=== PATIENT | female | born 1945 | race Caucasian/White ===

== ENCOUNTER → 2023-08-04 10:52 | Outpatient (REF) | payer MEDICARE, SELFPAY | LOC: HWRCS 10:52 | PROVIDERS: ATTENDING PHYSICIAN Internal Medicine | DX: I35.0 Nonrheumatic aortic (valve) stenosis (principal) | CPT/HCPCS: 93306 ==

== ENCOUNTER → 2024-01-05 08:47 | Outpatient (REF) | payer MEDICARE, SELFPAY | LOC: HWRAD 08:47 | PROVIDERS: ATTENDING PHYSICIAN Internal Medicine | DX: Z00.00 Encounter for general adult medical examination without abnormal findings (principal); Z78.0 Asymptomatic menopausal state; Z13.820 Encounter for screening for osteoporosis | CPT/HCPCS: 77080 ==

== ENCOUNTER 2024-03-19 14:22 | Emergency (ER) | payer MEDICARE, SELFPAY ==
[2024-03-19 14:29] VITALS: BP 162/87
[2024-03-19 15:08] VITALS: BMI 25.4
--- NOTE | 2024-03-19 15:38 | ED.SKININJ ---
HPI-Injury
General
Chief Complaint: Fall
Source: patient
Exam Limitations: none
Time Seen by Provider: 03/19/24 15:21
History of Present Illness-Injury
Initial Injury comments:
78-year-old female presents after trip and fall at 9 AM this morning. This was 6 hours prior to my exam. She was walking for tripped and fell forward hitting her upper lip on the concrete. She is not anticoagulated. She denies loss of conscious.
She denies headache or vision change. She denies neck pain. She notes a swollen lip with a laceration. Her teeth feel normal. She lives by herself but is accompanied by her neighbor. Was told to come here for evaluation.
Phy Exam
Physical Exam
Physical Exam:
General: Well-appearing female no acute respiratory distress
HEENT: Normocephalic superficial laceration mucosal surface of the lip. One is more anterior that measures about 5 mm and is superficial. The other 1 is posterior on the upper lip that measures 2 mm. This is a small puncture. Dentition appears
well pupils equal round reactive to light edges of the wounds are well-approximated
Musculoskeletal exam: Cervical spine is nontender neurologic exam: Alert and oriented x 3 conversing appropriately no drift normal gait
Extremities: No cyanosis
Course
Vital Signs
Initial and Last Documented VS:
Initial Vital Signs
Temp Pulse Resp BP Pulse Ox
98.1 F 83 18 162/87 96
03/19/24 14:29 03/19/24 14:29 03/19/24 14:29 03/19/24 14:29 03/19/24 14:29
Last Documented Vital Signs
Temp Pulse Resp BP Pulse Ox
98.1 F 83 18 162/87 96
03/19/24 14:29 03/19/24 14:29 03/19/24 14:29 03/19/24 14:29 03/19/24 14:29
MDM/Problems Addressed
Differential Diagnosis Includes:
Patient presents after trip and fall. Neurologically intact. There is superficial laceration to upper lip. Laceration do not require any wound closure wound care instructions were given. Offered and recommended CT of the head secondary to the
fall however patient declined as she feels normal and the injury happened quite sometime ago. Think this is reasonable but strict return precautions were given.
*Critical Care Note
Total Time (30-74mins, 75-104mins- exclusive of procedures): Not Applicable
ED Attending Note
-
Portions of this chart may have been created with voice recognition software.� Occasional wrong word or��sound alike� substitutions may have occurred due to the inherent limitations of voice recognition software.
Discharge Plan
Departure
Patient Disposition: Home (Routine Discharge)
Date of Disposition: 03/19/24
Time of Disposition: 15:42
Patient with high blood pressure during this ER visit?: No
Discharge Problem:
Laceration
Instructions: Wound Care (DC)
Prescriptions:
No Action
No Current Medications
0
Activity Restrictions/Additional Instructions:
Ice to the lip for swelling. You may rinse with warm salt water. Please return here for increasing headache vision change nausea or other concerning finding
Interventions
Interventions:
*Risk Screen - Suicide Last Done: 03/19/24 14:34
*General Assessment Last Done: 03/19/24 14:34
*Neglect/Abuse Screening Last Done: 03/19/24 14:34
ED- Fall Risk Assessment Last Done: 03/19/24 15:08
*ED COVID-19 Vaccine History Last Done: 03/19/24 15:08
ED-Musculoskeletal Assessment Last Done: 03/19/24 15:08
ED- Neurological Assessment Last Done: 03/19/24 15:08
ED-Skin Assessment Last Done: 03/19/24 15:08
Discharge Date and Time
Print Language: BULGARIAN
== END 2024-03-19 15:55 | disposition home or self-care (01) ==
LOC: EMR 14:22
PROVIDERS: EMERGENCY PHYSICIAN Emergency Medicine; FAMILY PHYSICIAN Internal Medicine
DX: S01.511A Laceration without foreign body of lip, initial encounter (principal); W01.0XXA Fall on same level from slipping, tripping and stumbling without subsequent striking against object, initial encounter; Z88.8 Allergy status to other drugs, medicaments and biological substances
CPT/HCPCS: 99282

== ENCOUNTER 2024-06-21 20:26 | Inpatient (IN) | payer MEDICARE, SELFPAY ==
[2024-06-21 15:45] VITALS: BP 154/82
[2024-06-21 16:11] VITALS: BP 150/90
--- NOTE | 2024-06-21 16:14 | ED.GENMED ---
ED Provider Triage
<Tan Ferrera Jr., PA-C - Last Filed: 06/21/24 16:15>
-
Patient seen by provider in Triage?: Seen in Triage
Attestation: A medical screening examination has been initiated by a qualified medical provider. Based on the assessment performed at this time, it has been determined that an emergent medical condition may exist and the patient has been informed
that further medical evaluation and possible additional diagnostic testing may be needed.
HPI: URI over the past few weeks. Also has been on amoxicillin for the past few days no improvement of symptoms. Ongoing cough some discomfort to the right lower chest.Plan for x-ray and labs for further assessment.
GENERAL: Alert , in no apparent distress
EYE: No visual abnormalities.
NECK: Trachea midline
ENT: No visible abnormalities.
LUNGS: No acute respiratory distress
NEUROLOGICAL: Alert and oriented
SKIN: Skin intact. No visible changes.
MUSCULOSKELETAL: Moving extremities normally
PSYCH: Normal and appropriate interaction.
This is a medical evaluation conducted in person to initiate diagnostic evaluation and provide initial therapeutics. Please see further documentation by the treating clinician.
History of Present Illness
<Tan Ferrera Jr., PA-C - Last Filed: 06/21/24 16:15>
General
Chief Complaint: Cold/Flu/URI Symptoms
Time Seen by Provider: 06/21/24 17:10
<TESFAYE Gamboa - Last Filed: 06/21/24 19:35>
General
Source: patient and family
Exam Limitations: none
Nursing documentation reviewed up to this point in time: agreed with
History of Present Illness
History of Present Illness:
Patient is a 78-year-old female who presents to the ER with daughter at bedside. Patient reports has been sick since June 02 with cough. She reports for the past several weeks her symptoms have worsened. She continues to have chest congestion
nasal congestion however now feels very weak. She saw her family doctor June who put on amoxicillin. She has been taking that for the past 4 days without relief. Patient can barely get around at home as per daughter. She did have chills but
has not had a recent fever.
Review of Systems
<TESFAYE Gamboa - Last Filed: 06/21/24 19:35>
Review of Systems
Allergies reviewed?: Yes
Other source history: family
All Other Systems: ROS reviewed and negative except as documented in HPI and ROS
Constitutional: Reports fatigue
EENT: Reports no symptoms
Respiratory: Reports cough; Denies trouble breathing
Cardiac: Reports no symptoms
ABD/GI: Reports no symptoms
Musculoskeletal: Reports no symptoms
Skin: Reports no symptoms
Neurological: Reports no symptoms
Psychiatric: Reports no symptoms
Phy Exam
<TESFAYE Gamboa - Last Filed: 06/21/24 19:35>
General Physical Exam
General Presentation: no apparent distress
General age: appears stated age
General Skin: warm and dry
General Habitus: elderly
General Mental: alert
General Hydration: appears well hydrated
Cardiovascular Exam
Cardiovascular Exam: regular rate/rhythm, no murmur and normal peripheral pulses
Pulmonary Exam
Pulmonary Exam: other (Slight crackles)
Neurological Exam
Neurological Exam: alert and oriented x3
Musculoskeletal Exam
Musculoskeletal Exam: full ROM
Skin Exam
Skin Exam: normal color and warm/dry
Psychiatric Exam
Psychiatric Exam: normal mood/affect
Course
<Tan Ferrera Jr., PA-C - Last Filed: 06/21/24 16:15>
Orders/Labs/Results
Orders:
Orders
06/21/24 Breakfast
Cholesterol Lowering
At Your Request: Full Participation
Cholesterol Lowering: Sodium, 2 Gram
06/21/24 16:10
EKG [Electrocardiogram (*1)] Urgent
Reason for Study: Fatigue / Weakness
EKG- Treatment ONCE
Chest [CR Chest - 2 Views ] Urgent
Comment:
Reason For Exam: cough fever
06/21/24 16:34
CBC/With Diff [Complete Blood Count/With Diff] Urgent
CMP [Comprehensive Metabolic Panel] Urgent
TSH Reflex To Free T4 Urgent
06/21/24 16:43
Urinalysis Reflex To Culture Urgent
Date Specimen was Collected: 06/21/24
Time Specimen was Collected: 16:42
Urine Microscopic Reflex Cult Urgent
Legionella Urinary Antigen Routine
DESTINY Source: Urine
Specimen Description:
Strep pneumoniae Antigen Routine
DESTINY Source: Urine
Specimen Description:
06/21/24 18:06
0.9% Sodium Chloride 1000 ml [Nss] 1,000 ml IV BOLUS
Azithromycin 500 mg/250 ml [Zithromax Infusion] 500 mg in 250 ml IV NOW
CefTRIAXone [Rocephin] 1,000 mg IV NOW STA
06/21/24 19:50
COVID-19 Antigen Urgent
Source: Nasal Swab
Influenza A+B Rapid Molecular Urgent
DESTINY Source: Nasal Swab
Specimen Description:
06/21/24 19:55
Admit/Transfer Patient As Directed
Co-Sign Provider:
Level of Care: Inpatient admission
Assign to:: Medical/Surgical
Physician / Group: [email or web address]
Diagnosis: pneumonia
Reason for Hospitalization: pneumonia
Expected length of stay greater than two midnights?: Yes
ELOS- Estimated Length of Stay in days: 3
I certify the patient meets the requirements for IP care: Yes
Code Status As Directed
Resuscitation Status: Full Code
PRN Pain Medication Management As Directed
May give lesser potent ordered pain med per pt: Yes
preference::
Protocol:: Medication orders for pain may be administered in a
manner that supports deferring to patient preference
when the pt is:
- Requesting an ordered lesser potent pain medication.
Least to most potent pain medications are defined
as: acetaminophen < NSAID < tramadol < opioids
(morphine, oxycodone, hydromorphone).
- Requesting a lesser dose of the same medication IF
ORDERED.
- Requesting a less intrusive route of administration
if both routes are prescribed by the provider (PO <
IV).
06/21/24 19:57
Sterile Water [Sterile Water For Injection] 10 ml .ROUTE .[facility]
06/21/24 21:06
0.9% Sodium Chloride 1000 ml [Nss] 1,000 ml IV 80 mls/hr
Acetaminophen [Tylenol] 650 mg PO Q4HPRN PRN
Guaifenesin [Mucinex] 600 mg PO Q12
Ipratropium/Albuterol Sulfate [Duoneb] 3 ml INH R Q4HPRN PRN
06/21/24 21:06
Respiratory Culture/Gram Stain Urgent
DESTINY Source: Sputum
Specimen Description:
Activity As Directed
Activity Level: Out of Bed-Early Mobility
Intake/ Output As Directed
Frequency: Per unit guidelines
Vital Signs As Directed
Frequency: Per unit guidelines
Weight As Directed
Frequency: Once
Comment: on admission
Pt Eval And Treat Routine
Activity Level: As Tolerated
DX Deep Vein Thrombosis Video Routine
06/22/24 05:54
Basic Metabolic Panel IN AM
Complete Blood Count/No Diff IN AM
06/22/24 08:00
Lisinopril [Zestril] 40 mg PO DAILY
06/22/24 18:00
Enoxaparin Sodium [Lovenox] 40 mg SC QPM
06/22/24 20:00
Azithromycin 500 mg/250 ml [Zithromax Infusion] 500 mg in 250 ml IV Q24H
CefTRIAXone [Rocephin] 1,000 mg IV Q24H
06/23/24 06:00
Basic Metabolic Panel IN AM
Complete Blood Count/No Diff IN AM
06/24/24 06:00
Basic Metabolic Panel IN AM
Complete Blood Count/No Diff IN AM
06/25/24 06:00
Basic Metabolic Panel IN AM
Complete Blood Count/No Diff IN AM
Abnormal Lab Results
06/21/24 06/21/24
16:34 16:43
WBC 18.2 H 10^3/uL
(4.8-10.8)
RBC 3.63 L 10^6/uL
(4.20-5.40)
Hgb 11.4 L g/dL
(12.0-16.0)
Hct 33.2 L %
(37.0-47.0)
MCH 31.4 H pg
(27.0-31.0)
MPV 11.2 H fL
(7.4-10.4)
Abs Immat Gran (auto) 0.2 H 10^3/uL
(0-0.05)
Absolute Neuts (auto) 14.5 H 10^3/uL
(1.4-6.5)
Absolute Monos (auto) 1.7 H 10^3/uL
(0.1-0.6)
Immature Gran % 1.2 H %
(0-0.5)
Neutrophils % 79.4 H %
(42.2-75.2)
Lymphocytes % 9.6 L %
(20.5-51.1)
Sodium 130 L mmol/L
(135-145)
Chloride 89 L mmol/L
(98-107)
Carbon Dioxide 31 H mmol/L
(22-30)
Glucose 119 H mg/dl
(70-99)
ALT 39 H U/L
(0-35)
Alkaline Phosphatase 144 H U/L
(38-126)
Leukocyte Esterase Rfl Trace A
(Negative)
Urine Bacteria (Reflex) Few A
(Negative)
06/21/24 16:34
06/21/24 16:34
Vital Signs
Initial and Last Documented VS:
Initial Vital Signs
Temp Pulse Resp BP Pulse Ox
97.8 F 102 16 150/90 98
06/21/24 16:11 06/21/24 16:11 06/21/24 16:11 06/21/24 16:11 06/21/24 16:11
Last Documented Vital Signs
Temp Pulse Resp BP Pulse Ox
97.6 F 85 24 147/78 96
06/22/24 09:23 06/22/24 09:16 06/21/24 23:20 06/22/24 09:16 06/22/24 09:16
<TESFAYE Gamboa - Last Filed: 06/21/24 19:35>
Orders/Labs/Results
Orders:
Orders
06/21/24 Breakfast
Cholesterol Lowering
At Your Request: Full Participation
Cholesterol Lowering: Sodium, 2 Gram
06/21/24 16:10
EKG [Electrocardiogram (*1)] Urgent
Reason for Study: Fatigue / Weakness
EKG- Treatment ONCE
Chest [CR Chest - 2 Views ] Urgent
Comment:
Reason For Exam: cough fever
06/21/24 16:34
CBC/With Diff [Complete Blood Count/With Diff] Urgent
CMP [Comprehensive Metabolic Panel] Urgent
TSH Reflex To Free T4 Urgent
06/21/24 16:43
Urinalysis Reflex To Culture Urgent
Date Specimen was Collected: 06/21/24
Time Specimen was Collected: 16:42
Urine Microscopic Reflex Cult Urgent
Legionella Urinary Antigen Routine
DESTINY Source: Urine
Specimen Description:
Strep pneumoniae Antigen Routine
DESTINY Source: Urine
Specimen Description:
06/21/24 18:06
0.9% Sodium Chloride 1000 ml [Nss] 1,000 ml IV BOLUS
Azithromycin 500 mg/250 ml [Zithromax Infusion] 500 mg in 250 ml IV NOW
CefTRIAXone [Rocephin] 1,000 mg IV NOW STA
06/21/24 19:50
COVID-19 Antigen Urgent
Source: Nasal Swab
Influenza A+B Rapid Molecular Urgent
DESTINY Source: Nasal Swab
Specimen Description:
06/21/24 19:55
Admit/Transfer Patient As Directed
Co-Sign Provider:
Level of Care: Inpatient admission
Assign to:: Medical/Surgical
Physician / Group: therese
Diagnosis: pneumonia
Reason for Hospitalization: pneumonia
Expected length of stay greater than two midnights?: Yes
ELOS- Estimated Length of Stay in days: 3
I certify the patient meets the requirements for IP care: Yes
Code Status As Directed
Resuscitation Status: Full Code
PRN Pain Medication Management As Directed
May give lesser potent ordered pain med per pt: Yes
preference::
Protocol:: Medication orders for pain may be administered in a
manner that supports deferring to patient preference
when the pt is:
- Requesting an ordered lesser potent pain medication.
Least to most potent pain medications are defined
as: acetaminophen < NSAID < tramadol < opioids
(morphine, oxycodone, hydromorphone).
- Requesting a lesser dose of the same medication IF
ORDERED.
- Requesting a less intrusive route of administration
if both routes are prescribed by the provider (PO <
IV).
06/21/24 19:57
Sterile Water [Sterile Water For Injection] 10 ml .ROUTE .[facility]
06/21/24 21:06
0.9% Sodium Chloride 1000 ml [Nss] 1,000 ml IV 80 mls/hr
Acetaminophen [Tylenol] 650 mg PO Q4HPRN PRN
Guaifenesin [Mucinex] 600 mg PO Q12
Ipratropium/Albuterol Sulfate [Duoneb] 3 ml INH R Q4HPRN PRN
06/21/24 21:06
Respiratory Culture/Gram Stain Urgent
DESTINY Source: Sputum
Specimen Description:
Activity As Directed
Activity Level: Out of Bed-Early Mobility
Intake/ Output As Directed
Frequency: Per unit guidelines
Vital Signs As Directed
Frequency: Per unit guidelines
Weight As Directed
Frequency: Once
Comment: on admission
Pt Eval And Treat Routine
Activity Level: As Tolerated
DX Deep Vein Thrombosis Video Routine
06/22/24 05:54
Basic Metabolic Panel IN AM
Complete Blood Count/No Diff IN AM
06/22/24 08:00
Lisinopril [Zestril] 40 mg PO DAILY
06/22/24 18:00
Enoxaparin Sodium [Lovenox] 40 mg SC QPM
06/22/24 20:00
Azithromycin 500 mg/250 ml [Zithromax Infusion] 500 mg in 250 ml IV Q24H
CefTRIAXone [Rocephin] 1,000 mg IV Q24H
06/23/24 06:00
Basic Metabolic Panel IN AM
Complete Blood Count/No Diff IN AM
06/24/24 06:00
Basic Metabolic Panel IN AM
Complete Blood Count/No Diff IN AM
06/25/24 06:00
Basic Metabolic Panel IN AM
Complete Blood Count/No Diff IN AM
Abnormal Lab Results
06/21/24 06/21/24
16:34 16:43
WBC 18.2 H 10^3/uL
(4.8-10.8)
RBC 3.63 L 10^6/uL
(4.20-5.40)
Hgb 11.4 L g/dL
(12.0-16.0)
Hct 33.2 L %
(37.0-47.0)
MCH 31.4 H pg
(27.0-31.0)
MPV 11.2 H fL
(7.4-10.4)
Abs Immat Gran (auto) 0.2 H 10^3/uL
(0-0.05)
Absolute Neuts (auto) 14.5 H 10^3/uL
(1.4-6.5)
Absolute Monos (auto) 1.7 H 10^3/uL
(0.1-0.6)
Immature Gran % 1.2 H %
(0-0.5)
Neutrophils % 79.4 H %
(42.2-75.2)
Lymphocytes % 9.6 L %
(20.5-51.1)
Sodium 130 L mmol/L
(135-145)
Chloride 89 L mmol/L
(98-107)
Carbon Dioxide 31 H mmol/L
(22-30)
Glucose 119 H mg/dl
(70-99)
ALT 39 H U/L
(0-35)
Alkaline Phosphatase 144 H U/L
(38-126)
Leukocyte Esterase Rfl Trace A
(Negative)
Urine Bacteria (Reflex) Few A
(Negative)
06/21/24 16:34
06/21/24 16:34
Vital Signs
Initial and Last Documented VS:
Initial Vital Signs
Temp Pulse Resp BP Pulse Ox
97.8 F 102 16 150/90 98
06/21/24 16:11 06/21/24 16:11 06/21/24 16:11 06/21/24 16:11 06/21/24 16:11
Last Documented Vital Signs
Temp Pulse Resp BP Pulse Ox
97.6 F 85 24 147/78 96
06/22/24 09:23 06/22/24 09:16 06/21/24 23:20 06/22/24 09:16 06/22/24 09:16
[facility] consulted with Physician
[facility] consulted with physician?: Yes
Name of Physician Consulted: Whit
<TESFAYE Gamboa - Last Filed: 06/21/24 19:35>
MDM/Problems Addressed
Differential Diagnosis Includes:
Not limited to failed outpatient pneumonia, electrolyte abnormality, dehydration
MDM/Problems Addressed:
Patient is a 78-year-old female who has been sick since mid May with cough congestion presenting to the ER with increasing weakness worsening cough. Patient has been on antibiotics by family doctor for the past 4 days without relief. Daughter
ports she is now very weak. She presents with an elevated white count of 18,000 chest x-ray does show airspace consolidation in the posterior basilar right lower lobe likely pneumonia will admit for failed outpatient antibiotics. Patient was also
found to be mildly hyponatremic given the fact the patient is also weak will require admission. Patient was given fluids, likely from dehydration
<TESFAYE Gamboa - Last Filed: 06/21/24 19:35>
*Radiology
Radiology exam reviewed: radiology read reviewed
*Pulse Oximetry
Patient hypoxic: yes
*EKG
Interpreted by ED Provider?: Yes
Interpretation: normal
Comparison EKG: no comparison EKG present
Heart Rate: 91
Rate: normal
Rhythm: sinus
Ischemia: no ischemia
*Critical Care Note
Total Time (30-74mins, 75-104mins- exclusive of procedures): Not Applicable
ED Attending Note
<Edsummer Ferrera Jr., PA-C - Last Filed: 06/21/24 16:15>
-
Portions of this chart may have been created with voice recognition software.� Occasional wrong word or��sound alike� substitutions may have occurred due to the inherent limitations of voice recognition software.
Discharge Plan
Departure
Patient Disposition: Admit
Date of Disposition: 06/21/24
Time of Disposition: 19:31
Admit to: Med/Surg
Admit to doctor: hospitalist
Presentation/result/management discussed w/ accepting MD/DO: Hospitalist
Patient with high blood pressure during this ER visit?: Yes
Condition: Fair
Discharge Problem:
Pneumonia, Weakness, Acute hyponatremia
Interventions
Interventions:
*Risk Screen - Suicide Last Done: 06/21/24 16:11
*General Assessment Last Done: 06/21/24 18:32
*Neglect/Abuse Screening Last Done: 06/21/24 16:11
*ED COVID-19 Vaccine History Last Done: 06/21/24 21:44
ED- Pulmonary Assessment Last Done: 06/21/24 18:30
[2024-06-21 17:20] LABS: % Basophils 0.3 % (0-2); % Eosinophils 0.4 % (0-6); % Immature Granulocytes 1.2 % (0-0.5); % Lymphocytes 9.6 % (20.5-51.1); % Monocytes 9.1 % (1.7-9.3); % Neutrophils 79.4 % (42.2-75.2); Absolute Basophils 0.1 10^3/uL (0-0.2); Absolute Eosinophils 0.1 10^3/uL (0-0.7); Absolute Immature Granulocytes 0.2 10^3/uL (0-0.05); Absolute Lymphocytes 1.7 10^3/uL (1.2-3.4); Absolute Monocytes 1.7 10^3/uL (0.1-0.6); Absolute Neutrophils 14.5 10^3/uL (1.4-6.5); Hematocrit 33.2 % (37.0-47.0); Hemoglobin 11.4 g/dL (12.0-16.0); Mean Corp Hgb Conc. 34.3 g/dL (33.0-37.0); Mean Corpuscular Hgb 31.4 pg (27.0-31.0); Mean Corpuscular Volume 91.5 fL (81.0-99.0); Mean Platelet Volume 11.2 fL (7.4-10.4); Nucleated Red Blood Cells % 0 %; Platelet Count 392 10^3/uL (130-400); Red Blood Cell Count 3.63 10^6/uL (4.20-5.40); Red Cell Dist. Width 12.7 % (11.5-14.5); White Blood Cell Count 18.2 10^3/uL (4.8-10.8)
[2024-06-21 17:31] LABS: ALT (SGPT) 39 U/L (0-35); AST (SGOT) 35 U/L (14-36); Albumin 3.9 g/dl (3.5-5.0); Alkaline Phosphatase 144 U/L (38-126); Blood Urea Nitrogen 17 mg/dl (7-17); Calcium 9.5 mg/dl (8.4-10.2); Carbon Dioxide 31 mmol/L (22-30); Chloride 89 mmol/L (98-107); Glucose 119 mg/dl (70-99); Potassium 4.4 mmol/L (3.5-5.1); Sodium 130 mmol/L (135-145); Total Bilirubin 0.3 mg/dl (0.2-1.3); Total Protein 6.9 g/dl (6.3-8.2); eGFR > 60.00
[2024-06-21 17:44] LABS: Urine Albumin Trace (Neg - Trace); Urine Bilirubin Negative (Negative); Urine Character Clear (Clear); Urine Color Yellow; Urine Glucose Negative (Negative); Urine Ketone Negative (Negative); Urine Leukocyte Trace (Negative); Urine Nitrite Negative (Negative); Urine Occult Blood Negative (Negative); Urine Urobilinogen 1+ (Neg - 1+)
[2024-06-21 17:59] LABS: TSH Reflex To Free T4 0.96 uIU/ml (0.47-4.68)
[2024-06-21 18:31] VITALS: BP 142/87
[2024-06-21 19:28] LABS: Urine Bacteria Few (Negative); Urine Red Blood Cell 0-2 /HPF (0-2); Urine Squamous Cell >30 /LPF (Few)
--- NOTE | 2024-06-21 19:37 | HPS.HSE ---
Family Physician
-
Family Physician: Camilla Mclain DO
Chief Complaint
-
cough
congestion
History of Present Illness
78-year-old female with PMH for HTN presented to us with cough with clear to gonzalez colored sputum, chest congestion, feeling just weak since the . patient stated very poor appetite. denied ARGUETA, dizzy or syncope. she had a temp of 100.0 at home.
denied abdominal pain,n,v,d. denied dysuria or hematuria. she is taking amoxicillin for past 4 days, with no relief in her symptoms.
chest x ray with pneumonia. received zithro and ceftriaxone. admitting for further management.
Medical History
Past Medical History
Past Medical History: Reports Other
Additional Past Medical History:
Diverticulosis
Hypertension
Aortic stenosis
Past Surgical History: Reports Other
Additional Past Surgical History:
Tubularization
Cataract surgery
Social History
Tobacco: Non-smoker
Alcohol: Occasional
Family History
Family History: Not pertinent
Allergies / Home Medications
Allergies reflects when Allergies were last updated in [facility].
Home Medications with original date entered in [facility]
Allergy/Medication List:
Allergies
Allergy/AdvReac Type Severity Reaction Status Date / Time
epinephrine Allergy Unknown Verified 06/21/24 16:14
Home Medications
Lactobac no.2-Bifidobac no.1-S. thermo 112.5 billion cell capsule (Visbiome) 1 cap PO DAILY 06/21/24
amoxicillin 250 mg/5 mL oral suspension 500 mg PO TID 06/21/24
ascorbic acid (vitamin C) 250 mg chewable tablet (Vitamin C) 250 mg PO QPM 06/21/24
fluticasone propionate 50 mcg/actuation nasal spray,suspension 1 spray intranasal DAILYPRN PRN congestion 06/21/24
hydrochlorothiazide 25 mg tablet 25 mg PO DAILY 06/21/24
lisinopril 40 mg tablet 40 mg PO DAILY 06/21/24
magnesium oxide 200 mg PO QPM 06/21/24
therapeutic multivitamin 1 tab PO QPM 06/21/24
vitamins A,C,U-epuf-uigkvg 4,296 mcg-226 mg-90 mg capsule (PreserVision AREDS) 1 cap PO BID 06/21/24
Review of Systems
-
Constitutional: Reports Fever, Fatigue and Chills
EENT: Reports No Symptoms
Respiratory: Reports Cough
Cardiac: Reports No Symptoms
Abdomen/GI: Reports No Symptoms
: Reports No Symptoms
Musculoskeletal: Reports No Symptoms
Skin: Reports No Symptoms
Neurological: Reports No Symptoms
Endocrine: Reports No Symptoms
Hematologic/Lymphatic: Reports No Symptoms
Psych: Reports No Symptoms
Physical Exam
Vital Signs
Vital Signs
Temp Pulse Resp BP Pulse Ox
97.8 F 92 18 142/87 96
06/21/24 16:11 06/21/24 18:31 06/21/24 18:31 06/21/24 18:31 06/21/24 18:31
Physical Exam
General: Well Developed, Well Nourished and No Apparent Distress
HEENT: NormoCephalic, Moist mucous membranes and Atraumatic
Respiratory: Clear
Cardiac: S1/S2 and Regular Rhythm; No Murmur or Rub
GI: Soft, Non Tender, Non Distended and Normal Bowel Sounds; No Organomegaly
Rectal: Deferred by Provider
Musculoskeletal: No Clubbing, No Cyanosis and No Edema
Skin: No Rash
Neuro: AO x 3 and Nonfocal/grossly intact
Psych: Calm
Laboratory Results
-
06/21/24 16:34
06/21/24 16:34
Laboratory Results
Total Bilirubin 0.3 mg/dl (0.2-1.3) 06/21/24 16:34
AST 35 U/L (14-36) 06/21/24 16:34
ALT 39 U/L (0-35) H 06/21/24 16:34
Alkaline Phosphatase 144 U/L (38-126) H 06/21/24 16:34
Data Reviewed
-
Lab Data: Labs Reviewed by me
Impression/Plan
-
# Chest congestion likely from pneumonia
-WBCs 18.2
-COVID,flu pending
-Chest x-ray with impression of small subpleural airspace consolidation in the posterior basilar right lower lobe. Diagnostic possibilities are (1) mild pneumonia or (2) subsegmental atelectasis/scarring.
2. Mild scarring in the right middle lobe.
3. Moderate bilateral lung hyperinflation suggesting chronic obstructive pulmonary disease (COPD).
-Zithromax ceftriaxone continued
-Tylenol as needed for fever
# Hyponatremia likely hypovolemic
-Received normal saline in ER
-Monitor BMP in a.m.
#essential htn
-lisinopril continued
-held HCTZ
#DVT prophylaxis
-Lovenox
#CODE status
-full code
[2024-06-21] MEDS: NSS 1000 IV ×2 (20:08→21:57)
[2024-06-21] MEDS: ZITHROMAX INFUSION 250 IV (20:09)
[2024-06-21] MEDS: ROCEPHIN 1000 MG IV (20:09)
[2024-06-21 20:15] LABS: COVID-19 Antigen Negative (Negative)
--- NOTE | 2024-06-21 20:26 | W.PN.UPDATE ---
Documented by User: Arabella Trevino MD 06/21/24 22:53
Update Note
Progress Note Update
Patient seen in conjunction with [employer]. I concur with history and physical and agree with the assessment and plan unless stated otherwise.
Briefly this is a 78-year-old female with past medical history significant for sinus congestion, hypertension presenting to the emergency department with ongoing cough, shortness of breath, fatigue, decreased p.o. intake and failure to thrive.
Patient reported that symptoms began after a gathering on May 31. She started having nasal congestion and then a cough and low-grade temp. She thought she had a cold. She tested herself for COVID which was negative. She was trying to
tolerate the symptoms up until in June. When she felt that her symptoms are not improving. She reports that her cough is not generally productive. She did have a fever on June 17. She saw a physician with that she had postnasal drip
syndrome and started on amoxicillin. She started taking the amoxicillin Friday. However she has continued to have cough fatigue listlessness and decreased p.o. intake. She denied nausea vomiting. She denies any wheezing. She denies history of
asthma. She reports prior smoking for denies any known COPD.
In the emergency department she was afebrile, she was admitted 6% on room air. Blood pressure was 145/70 pulse of 92. She had a chest x-ray showing a small consolidation in the right lower lobe. ECG showed normal sinus rhythm. She had
leukocytosis and wheezing thousand. Sodium was 130, the rest of the electrolytes were stable. BUN/creatinine were normal. AST ALT were slightly elevated. COVId negative. Flu negative.
On my exam air movement was low and she has crackles at the right lower base. No wheezing.
Right lower lobe pneumonia
- admit to med/surg
- IV ceftriaxone/azithromycin
- duonebs RTC for now, no steroids
- antitussives, prn
Hyponatremia - Patient with decreased po intake and really only drinking water for several days. suspect hypovolemic hyponatremia exacerbated by hctz.
- hold hctz
- continue IV normal saline overnight
DVT PPX - lovenox sq
Code status - full code

Documented by User: TESFAYE Gamboa 06/21/24 22:53
Update Note
Progress Note Update
Patient seen in conjunction with TESFAYE. I concur with history and physical and agree with the assessment and plan unless stated otherwise.
Briefly this is a 78-year-old female with past medical history significant for sinus congestion, hypertension presenting to the emergency department with ongoing cough, shortness of breath, fatigue, decreased p.o. intake and failure to thrive.
Patient reported that symptoms began after a gathering on May 31. She started having nasal congestion and then a cough and low-grade temp. She thought she had a cold. She tested herself for COVID which was negative. She was trying to
tolerate the symptoms up until in June. When she felt that her symptoms are not improving. She reports that her cough is not generally productive. She did have a fever on June 17. She saw a physician with that she had postnasal drip
syndrome and started on amoxicillin. She started taking the amoxicillin Friday. However she has continued to have cough fatigue listlessness and decreased p.o. intake. She denied nausea vomiting. She denies any wheezing. She denies history of
asthma. She reports prior smoking for denies any known COPD.
In the emergency department she was afebrile, she was admitted 6% on room air. Blood pressure was 145/70 pulse of 92. She had a chest x-ray showing a small consolidation in the right lower lobe. ECG showed normal sinus rhythm. She had
leukocytosis and wheezing thousand. Sodium was 130, the rest of the electrolytes were stable. BUN/creatinine were normal. AST ALT were slightly elevated. COVId negative. Flu negative.
On my exam air movement was low and she has crackles at the right lower base. No wheezing.
Right lower lobe pneumonia
- admit to med/surg
- IV ceftriaxone/azithromycin
- duonebs RTC for now, no steroids
- antitussives, prn
Hyponatremia - Patient with decreased po intake and really only drinking water for several days. suspect hypovolemic hyponatremia exacerbated by hctz.
- hold hctz
- continue IV normal saline overnight
DVT PPX - lovenox sq
Code status - full code
[2024-06-21 21:10] VITALS: BP 123/77
[2024-06-21 23:20] VITALS: BP 133/67
[2024-06-22 00:13] VITALS: BP 86/73
[2024-06-22 00:15] VITALS: BP 133/67
[2024-06-22 06:14] LABS: Hematocrit 31.5 % (37.0-47.0); Hemoglobin 10.2 g/dL (12.0-16.0); Mean Corp Hgb Conc. 32.4 g/dL (33.0-37.0); Mean Corpuscular Hgb 30.9 pg (27.0-31.0); Mean Corpuscular Volume 95.5 fL (81.0-99.0); Mean Platelet Volume 10.8 fL (7.4-10.4); Platelet Count 351 10^3/uL (130-400); White Blood Cell Count 12.7 10^3/uL (4.8-10.8)
[2024-06-22 06:33] LABS: Blood Urea Nitrogen 11 mg/dl (7-17); Calcium 8.6 mg/dl (8.4-10.2); Carbon Dioxide 28 mmol/L (22-30); Chloride 100 mmol/L (98-107); Glucose 105 mg/dl (70-99); Potassium 4.3 mmol/L (3.5-5.1); Sodium 135 mmol/L (135-145); eGFR > 60.00
--- NOTE | 2024-06-22 08:18 | W.PN.HOSP.TC ---
Today's Communication/Plan
-
Continue current care
Assessment / Plan
Assessment / Plan
Gen-AAOx3, NAD
HEENT-NC, AT, anicteric, clear oral mm
Neck-supple
CV-reg, no M, +S1/S2
Lungs-clear B/L
Abd-soft, NT, ND
Ext-no edema
Musculoskeletal-no cyanosis, clubbing
Skin-warm and dry
Neuro-grossly non-focal
Psych-calm, cooperative
Sepsis due to community-acquired pneumonia -hemodynamically stable. Continue antibiotics. Add Acapella. Urine Legionella, pneumococcal antigens negative. Chest x-ray with small subpleural airspace consolidation in the posterior right basilar
lower lobe. Moderate bilateral lung hyperinflation consistent with COPD.
WBCs trending down. She has very mild right-sided pleuritic pain, possibly due to pneumonia.
Hypovolemic hyponatremia - improved.
Essential hypertension -Discontinue hydrochlorothiazide due to hyponatremia. Continue lisinopril.
Full code
Dispo -likely discharge tomorrow if stable. Will need liquid antibiotic due to difficulty swallowing pills.
Anticipated Discharge: Within 24 hours
Subjective/Interval History
-
Date of Service: June 22, 2024
Patient seen and examined. Starting to feel better.
Objective Data
-
Labs:
Laboratory Results
06/22/24
05:54
WBC 12.7 H
Hgb 10.2 L
Hct 31.5 L
Plt Count 351
Sodium 135
Potassium 4.3
Chloride 100
Carbon Dioxide 28
BUN 11
Creatinine 0.5 L
Glucose 105 H
Calcium 8.6
Vital Signs:
Vital Signs
Temp Pulse Resp BP Pulse Ox
98.5 F 100 24 133/67 94
06/22/24 05:58 06/21/24 23:20 06/21/24 23:20 06/21/24 23:20 06/21/24 23:20
Review of Systems
-
History Source: Patient
All other systems: Reviewed and negative
[2024-06-22 09:15] VITALS: BP 147/78
[2024-06-22] MEDS: ZESTRIL 40 MG PO (09:16)
[2024-06-22] MEDS: ROBITUSSIN 100 MG PO ×2 (09:17→20:30)
[2024-06-22 09:50] VITALS: PULSE 85; O2SAT 96
[2024-06-22] MEDS: NSS 1000 IV ×2 (17:07→22:58)
[2024-06-22] MEDS: LOVENOX 40 MG SC (17:08)
[2024-06-22 18:37] VITALS: BP 159/93
[2024-06-22] MEDS: ROCEPHIN 1000 MG IV (20:19)
[2024-06-22] MEDS: STERILE WATER FOR INJECTION 10 ML IV (20:19)
[2024-06-22] MEDS: ZITHROMAX INFUSION 250 IV (20:30)
[2024-06-22 23:10] VITALS: BP 146/96
[2024-06-23 07:49] LABS: Hematocrit 30.9 % (37.0-47.0); Hemoglobin 10.3 g/dL (12.0-16.0); Mean Corp Hgb Conc. 33.3 g/dL (33.0-37.0); Mean Corpuscular Hgb 31.5 pg (27.0-31.0); Mean Corpuscular Volume 94.5 fL (81.0-99.0); Mean Platelet Volume 10.5 fL (7.4-10.4); Platelet Count 375 10^3/uL (130-400); Red Blood Cell Count 3.27 10^6/uL (4.20-5.40); Red Cell Dist. Width 13.2 % (11.5-14.5); White Blood Cell Count 13.6 10^3/uL (4.8-10.8)
[2024-06-23 08:07] VITALS: BP 151/87
[2024-06-23 08:21] LABS: Blood Urea Nitrogen 7 mg/dl (7-17); Calcium 8.5 mg/dl (8.4-10.2); Carbon Dioxide 32 mmol/L (22-30); Chloride 100 mmol/L (98-107); Glucose 98 mg/dl (70-99); Potassium 4.4 mmol/L (3.5-5.1); Sodium 137 mmol/L (135-145); eGFR > 60.00
[2024-06-23] MEDS: ZESTRIL 40 MG PO (09:05)
--- NOTE | 2024-06-23 10:09 | W.PN.HOSP.TC ---
Addendum entered and electronically signed by Blayne Moss DO 06/23/24 13:19:
CT chest shows multifocal pneumonia. No evidence of pulm embolism. Possible findings of esophagitis. Benign left adrenal adenoma.
Discussed findings with patient and daughter at the bedside.
Patient requesting discharge tomorrow morning to allow 1 more dose of IV antibiotics and rest overnight.
Recommend outpatient follow-up with PCP and pulmonary. Plan to discharge tomorrow. Updated nursing.
Addendum entered and electronically signed by Blayne Moss, 06/23/24 10:53:
Informed by nursing that patient has changed her mind again. Now she wants to get the CT chest done. Discharge canceled.
Addendum entered and electronically signed by Blayne Moss DO 06/23/24 10:30:
Informed by nursing that patient refusing CT chest. She understands the consequences of missing a pulmonary embolism, empyema, pleural effusion, other issues. This was discussed in person with the patient.
She is requesting discharge.
Discharge on oral antibiotics, follow-up closely with PCP.
Original Note:
Today's Communication/Plan
-
CT chest
Assessment / Plan
Assessment / Plan
Gen-AAOx3, NAD
HEENT-NC, AT, anicteric, clear oral mm
Neck-supple
CV-reg, no M, +S1/S2
Lungs-clear B/L
Abd-soft, NT, ND
Ext-no edema
Musculoskeletal-no cyanosis, clubbing
Skin-warm and dry
Neuro-grossly non-focal
Psych-calm, cooperative
Sepsis due to community-acquired pneumonia -hemodynamically stable. Continue antibiotics. Continue Acapella. Urine Legionella, pneumococcal antigens negative. Chest x-ray with small subpleural airspace consolidation in the posterior right
basilar lower lobe. Moderate bilateral lung hyperinflation consistent with COPD.
WBCs trending down. She has very mild right-sided pleuritic pain, possibly due to pneumonia. Check CT chest to rule out PE, empyema, pleural effusion. Patient agreeable.
Hypovolemic hyponatremia - improved.
Essential hypertension -Discontinue hydrochlorothiazide due to hyponatremia. Continue lisinopril. Sodium improved.
Full code
Dispo -await CT chest results.
Anticipated Discharge: Within 24 hours
Subjective/Interval History
-
Date of Service: June 23, 2024
Patient seen and examined. Complaining of feeling cold, headache, pleuritic right-sided chest pain.
Objective Data
-
Labs:
Laboratory Results
06/23/24
07:14
WBC 13.6 H
Hgb 10.3 L
Hct 30.9 L
Plt Count 375
Sodium 137
Potassium 4.4
Chloride 100
Carbon Dioxide 32 H
BUN 7
Creatinine 0.5 L
Glucose 98
Calcium 8.5
Vital Signs:
Vital Signs
Temp Pulse Resp BP Pulse Ox
98.2 F 92 20 151/87 96
06/23/24 08:07 06/23/24 08:07 06/23/24 08:07 06/23/24 08:07 06/23/24 08:07
I&O
06/22/24 06/23/24 06/24/24
06:59 06:59 06:59
Intake Total 1210 / 1210
Balance 1210 / 1210
Review of Systems
-
History Source: Patient
All other systems: Reviewed and negative
--- NOTE | 2024-06-23 10:33 | W.DS.TRANS ---
DC Summary - Mine Engineer
-
Discharge Instructions:
Discharge Diagnosis/Procedures Sepsis, pneumonia, hyponatremia
Diet Low Cholesterol,Low Fat
Activity As tolerated
Driving Restrictions As prior to admission
Bathing Restrictions None
Instructions:
Stand-Alone Forms:
Changes to Home Medications: Yes
Discharge Medications:
DC Medications w/original date entered in [employer]
Lactobac no.2-Bifidobac no.1-S. thermo 112.5 billion cell capsule (Visbiome) 1 cap PO DAILY 06/21/24
ascorbic acid (vitamin C) 250 mg chewable tablet (Vitamin C) 250 mg PO QPM 06/21/24
fluticasone propionate 50 mcg/actuation nasal spray,suspension 1 spray intranasal DAILYPRN PRN congestion 06/21/24
lisinopril 40 mg tablet 40 mg PO DAILY 06/21/24
magnesium oxide 200 mg PO QPM 06/21/24
therapeutic multivitamin 1 tab PO QPM 06/21/24
vitamins A,C,Z-cnfj-crydlc 4,296 mcg-226 mg-90 mg capsule (PreserVision AREDS) 1 cap PO BID 06/21/24
azithromycin 500 mg tablet 500 mg PO DAILY 2 days #2 tabs 06/23/24
cefuroxime axetil 500 mg tablet 500 mg PO BID #10 tabs 06/23/24
guaifenesin 600 mg tablet, extended release 12 hr 600 mg PO Q12 #20 tabs 06/23/24
Home Medication Changes
Stop hydrochlorothiazide
Pending Results: No
--- NOTE | 2024-06-23 11:43 | CM ---
Pt seen bedside w/ daughter, Barbara. Initial assessment completed. Admitted for cough and congestion. Pt w/ pneumonia at this time per CXR.
Pt reports that she lives alone in a single story home-2 steps to enter. Pt has support from her 3 daughters. Per Barbara, pt is independent w/ ADLs, personal care, eating, cooking, etc. Pt has been having a lot of coughing, trouble sleeping w/ some
trouble breathing, all relating to her being sick per Barbara. Wants pt to be able to go home once she is feeling better.
Pt is independent, denies DME for ambulating or daily functioning.
Denies SNF/VN/PT hx. Pt was seen walking independently to and from bathroom, no PT/OT needed at this time
Address, points of contact and insurance verified
PCP: Dr. Mclain
Pharmacy: [facility]
Per Barbara and pt, would like to speak w/ hospitalist. CM TT Dr. Moss making him aware
Plan: Home; no needs anticipated
--- NOTE | 2024-06-23 13:16 | W.DS.TRANS ---
DC Summary - Cash Accounting Clerk
-
Discharge Instructions:
Discharge Diagnosis/Procedures Sepsis, pneumonia, hyponatremia
Diet Low Cholesterol,Low Fat
Activity As tolerated
Driving Restrictions As prior to admission
Bathing Restrictions None
Instructions:
Stand-Alone Forms:
Changes to Home Medications: Yes
Discharge Medications:
DC Medications w/original date entered in [employer]
Lactobac no.2-Bifidobac no.1-S. thermo 112.5 billion cell capsule (Visbiome) 1 cap PO DAILY 06/21/24
ascorbic acid (vitamin C) 250 mg chewable tablet (Vitamin C) 250 mg PO QPM 06/21/24
fluticasone propionate 50 mcg/actuation nasal spray,suspension 1 spray intranasal DAILYPRN PRN congestion 06/21/24
lisinopril 40 mg tablet 40 mg PO DAILY 06/21/24
magnesium oxide 200 mg PO QPM 06/21/24
therapeutic multivitamin 1 tab PO QPM 06/21/24
vitamins A,C,C-takb-brlkpm 4,296 mcg-226 mg-90 mg capsule (PreserVision AREDS) 1 cap PO BID 06/21/24
cefprozil 250 mg/5 mL oral suspension 500 mg (10 mL) PO Q12H #100 mL 06/23/24
guaifenesin 600 mg tablet, extended release 12 hr 600 mg PO Q12 #20 tabs 06/23/24
Home Medication Changes
Stop hydrochlorothiazide.
Pending Results: No
[2024-06-23] MEDS: STERILE WATER FOR INJECTION 20 ML IV (14:14)
[2024-06-23] MEDS: ROCEPHIN 2000 MG IV (14:14)
[2024-06-23 16:00] VITALS: BP 153/86
[2024-06-23] MEDS: LOVENOX 40 MG SC (16:21)
[2024-06-23] MEDS: ROBITUSSIN 100 MG PO (20:08)
[2024-06-23] MEDS: ZITHROMAX INFUSION 250 IV (20:08)
[2024-06-23] MEDS: TYLENOL ORAL SOLUTION 650 MG PO (21:14)
[2024-06-23 23:30] VITALS: BP 140/74
[2024-06-24 07:36] LABS: Hemoglobin 11.5 g/dL (12.0-16.0); Mean Corp Hgb Conc. 33.8 g/dL (33.0-37.0); Mean Corpuscular Hgb 31.7 pg (27.0-31.0); Mean Corpuscular Volume 93.7 fL (81.0-99.0); Mean Platelet Volume 10.3 fL (7.4-10.4); Platelet Count 409 10^3/uL (130-400); Red Blood Cell Count 3.63 10^6/uL (4.20-5.40); White Blood Cell Count 14.3 10^3/uL (4.8-10.8)
[2024-06-24 07:54] VITALS: BP 185/103
[2024-06-24] MEDS: ZESTRIL 40 MG PO (07:56)
[2024-06-24] MEDS: ROBITUSSIN 100 MG PO (07:58)
[2024-06-24 08:01] LABS: Blood Urea Nitrogen 8 mg/dl (7-17); Carbon Dioxide 35 mmol/L (22-30); Chloride 99 mmol/L (98-107); Glucose 109 mg/dl (70-99); Potassium 4.5 mmol/L (3.5-5.1); Sodium 139 mmol/L (135-145); eGFR > 60.00
--- NOTE | 2024-06-24 08:58 | W.PN.HOSP.TC ---
Today's Communication/Plan
-
Discharge
Assessment / Plan
Assessment / Plan
Gen-AAOx3, NAD
HEENT-NC, AT, anicteric, clear oral mm
Neck-supple
CV-reg, no M, +S1/S2
Lungs-clear B/L
Abd-soft, NT, ND
Ext-no edema
Musculoskeletal-no cyanosis, clubbing
Skin-warm and dry
Neuro-grossly non-focal
Psych-calm, cooperative
Sepsis due to community-acquired pneumonia -hemodynamically stable. Continue antibiotics. Continue Acapella. Urine Legionella, pneumococcal antigens negative. Chest x-ray with small subpleural airspace consolidation in the posterior right
basilar lower lobe. Moderate bilateral lung hyperinflation consistent with COPD.
WBCs trending down. She has very mild right-sided pleuritic pain, possibly due to pneumonia.
CT chest with multifocal pneumonia.
Completed 3 days of azithromycin, 3 days of ceftriaxone.
Stable for discharge today on oral liquid antibiotics.
Hypovolemic hyponatremia - improved.
Essential hypertension -Discontinue hydrochlorothiazide due to hyponatremia. Continue lisinopril. Sodium improved. Follow-up closely as an outpatient with primary care doctor.
Full code
Dispo -medically stable for discharge.
32-minute spent in discharge process.
Anticipated Discharge: Today
Subjective/Interval History
-
Date of Service: June 24, 2024
Patient seen and examined. Slept better. No complaints.
Objective Data
-
Labs:
Laboratory Results
06/24/24
07:18
WBC 14.3 H
Hgb 11.5 L
Hct 34.0 L
Plt Count 409 H
Sodium 139
Potassium 4.5
Chloride 99
Carbon Dioxide 35 H
BUN 8
Creatinine 0.5 L
Glucose 109 H
Calcium 9.0
Vital Signs:
Vital Signs
Temp Pulse Resp BP Pulse Ox
97.8 F 89 18 185/103 95
06/24/24 07:54 06/24/24 07:54 06/24/24 07:54 06/24/24 07:54 06/24/24 07:54
I&O
06/23/24 06/24/24 06/25/24
06:59 06:59 06:59
Intake Total 1210 / 1210 840 / 840
Balance 1210 / 1210 840 / 840
Review of Systems
-
History Source: Patient
All other systems: Reviewed and negative
--- NOTE | 2024-06-24 10:18 | CM ---
CM reviewed chart, patient seen bedside. Patient denies needs upon discharge, reports she has family to provide transportation home. IMM reviewed, patient verbally agreeable, placed in chart, patient provided with copy. CM will continue to follow
for all discharge planning needs.
Plan; home no needs.
[2024-06-24 11:22] VITALS: BP 155/84
== END 2024-06-24 12:08 | disposition home or self-care (01) | DRG 871 ==
LOC: 1 ACUTE 20:26
PROVIDERS: Nurse Practitioner; Physician Assistant; Registered Nurse; ADMITTING PHYSICIAN Internal Medicine; ATTENDING PHYSICIAN Hospitalist; EMERGENCY PHYSICIAN Emergency Medicine; FAMILY PHYSICIAN Internal Medicine
DX: A41.89 Other specified sepsis (principal); J18.9 Pneumonia, unspecified organism; E87.1 Hypo-osmolality and hyponatremia; Z11.52 Encounter for screening for COVID-19; E86.1 Hypovolemia; I10 Essential (primary) hypertension; Z59.89 Other problems related to housing and economic circumstances
CPT/HCPCS: 71046; 71275; 80048; 80053; 81003; 81015; 84443; 85025; 85027; 87070; 87205; 87449; 87502; 87811; 87899; 93005; 97161; 99285; Q9967

== ENCOUNTER → 2024-08-30 10:02 | Outpatient (REF) | payer MEDICARE, SELFPAY | LOC: HWWDC 10:02 | PROVIDERS: ATTENDING PHYSICIAN Internal Medicine | DX: Z12.31 Encounter for screening mammogram for malignant neoplasm of breast (principal) | CPT/HCPCS: 77063; 77067 ==

== ENCOUNTER → 2024-09-02 09:13 | Outpatient (REF) | payer MEDICARE, SELFPAY | LOC: RCS 09:13 | PROVIDERS: ATTENDING PHYSICIAN Internal Medicine | DX: I35.0 Nonrheumatic aortic (valve) stenosis (principal); Z87.01 Personal history of pneumonia (recurrent) | CPT/HCPCS: 71046; 93306 ==